=== PATIENT | male | born 1955 | race Caucasian/White ===

== ENCOUNTER 2017-03-29 08:53 | Emergency (ER) | payer BC ==
[~2017-03-29] VITALS: Ht 177.8 cm; Wt 127.8 kg
[~2017-03-29 08:53] MED LIST: AMOXICILLIN500 M1 PO; ASPIRIN81 M2 PO; CARDIZEM CD360 MG PO; CRESTOR40 MG PO; ENDOCET 5-3251 EACH PO; HYDROCHLOROTHIA25 MG PO; IBUPROFEN800 MG PO; IRON325 MG PO; METFORMIN HCL500 MG PO
[2017-03-29] MEDS ORDERED: KEFLEX500 MG PO (10:49)
[2017-03-29 11:23] VITALS: BP 172/73
== END 2017-03-29 11:26 | disposition home or self-care (01) ==
LOC: EME 08:53
PROC: 0HQGXZZ Repair Left Hand Skin, External Approach (ICD-10-PCS; principal; 2017-03-29)
DX: S61.211A Laceration without foreign body of left index finger without damage to nail, initial encounter (principal); W26.0XXA Contact with knife, initial encounter; Y93.89 Activity, other specified; F17.200 Nicotine dependence, unspecified, uncomplicated
CPT/HCPCS: 99281; 99285